=== PATIENT | male | born 2005 | race African-American/Black ===

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

== ENCOUNTER 2025-10-11 10:15 | Emergency (ER) | payer SELFPAY | END 2025-10-11 11:40 | disposition home or self-care (01) | LOC: ERS 10:15 | DX: J06.9 Acute upper respiratory infection, unspecified (principal); F17.290 Nicotine dependence, other tobacco product, uncomplicated | CPT/HCPCS: 87428; 99283 ==